=== PATIENT | female | born 1965 | race Two or more races ===

== ENCOUNTER 2021-06-02 11:15 | Inpatient (IN) | payer OTHER ==
[~2021-06-02] VITALS: Ht 157.5 cm; Wt 59.0 kg
[2021-06-09] MEDS ORDERED: INTESTINEX680 M1 PO (11:07)
[2021-06-09] MEDS ORDERED: ULTRACET PO (11:07)
[2021-06-09] MEDS ORDERED: LEVSIN/SL0.125 MG SL (11:08)
== END 2021-06-09 13:58 | disposition home or self-care (01) | DRG 804 ==
LOC: SURH 06-05 06:00
PROVIDERS: ADMIT Internal Medicine Geriatric Medicine; ATTEND Internal Medicine Geriatric Medicine
PROC: 30233N1 Transfusion of Nonautologous Red Blood Cells into Peripheral Vein, Percutaneous Approach (ICD-10-PCS; principal; 2021-06-05)
PROC: 0DBN0ZZ Excision of Sigmoid Colon, Open Approach (ICD-10-PCS; 2021-06-06)
PROC: 07BD0ZX Excision of Aortic Lymphatic, Open Approach, Diagnostic (ICD-10-PCS; 2021-06-06)
PROC: 3E0F7SF Introduction of Other Gas into Respiratory Tract, Via Natural or Artificial Opening (ICD-10-PCS; 2021-06-06)
DX: D64.9 Anemia, unspecified (principal); D12.5 Benign neoplasm of sigmoid colon; K63.89 Other specified diseases of intestine; Z20.822 Contact with and (suspected) exposure to COVID-19

== ENCOUNTER 2021-06-14 18:16 | Emergency (ER) | payer OTHER ==
[~2021-06-14] VITALS: Ht 157.5 cm; Wt 59.0 kg
[~2021-06-14 18:16] MED LIST: INTESTINEX680 M1 PO; LEVSIN/SL0.125 MG SL; ULTRACET PO
== END 2021-06-15 09:17 | disposition home or self-care (01) ==
LOC: ER 18:16
DX: K63.89 Other specified diseases of intestine (principal); K62.5 Hemorrhage of anus and rectum; D64.9 Anemia, unspecified

== ENCOUNTER 2022-11-11 12:03 | Inpatient (IN) | payer OTHER ==
[~2022-11-11] VITALS: Ht 157.5 cm; Wt 59.0 kg
[2022-11-22] MEDS ORDERED: PEPCID AC20 MG PO (08:44)
[2022-11-22] MEDS ORDERED: HYOSCYAMINE0.125 M1 SL (08:44)
[2022-11-22] MEDS ORDERED: TRAM1TAB98 PO (08:44)
== END 2022-11-22 10:56 | disposition home or self-care (01) | DRG 337 ==
LOC: ER 12:03 → SURH 11-12 13:31
PROVIDERS: ADMIT Surgery; ATTEND Surgery
PROC: BW21ZZZ Computerized Tomography (CT Scan) of Abdomen and Pelvis (ICD-10-PCS; 2022-11-13)
PROC: 02HV33Z Insertion of Infusion Device into Superior Vena Cava, Percutaneous Approach (ICD-10-PCS; 2022-11-14)
PROC: 05H533Z Insertion of Infusion Device into Right Subclavian Vein, Percutaneous Approach (ICD-10-PCS; 2022-11-17)
PROC: 0DN80ZZ Release Small Intestine, Open Approach (ICD-10-PCS; principal; 2022-11-17 16:00)
DX: K56.699 Other intestinal obstruction unspecified as to partial versus complete obstruction (principal); K52.89 Other specified noninfective gastroenteritis and colitis; K29.70 Gastritis, unspecified, without bleeding; Z20.822 Contact with and (suspected) exposure to COVID-19